=== PATIENT | male | born 1985 | race Caucasian/White ===

== ENCOUNTER → 2016-09-20 | Outpatient (CLI) | payer OTHER ==
--- NOTE | 2016-09-21 10:14 | KCIC ---
PROCEDURE MR of the left knee HISTORY Left knee pain. Swelling. Injury in 2008. Meniscal repair 2012. COMPARISON None TECHNIQUE Routine multiplanar sequences are obtained. FINDINGS Mild signal within the medial meniscus. Very small parameniscal cyst adjacent to the posterior horn. Very subtle violation of the undersurface. There is also some violation of the posterior capsular surface. Findings are suspicious for small tear. No evidence of a lateral meniscal tear. The anterior and posterior cruciate ligaments are intact. Medial collateral ligament intact. Iliotibial band unremarkable. Fibular collateral ligament, biceps femoris tendon and popliteus tendon are intact. The extensor mechanism is intact. Trace joint fluid. No evidence of osteochondral loose body. No acute articular cartilage defect. No bone lesion or acute fracture. Mild edema or contusion within the infrapatellar fat. There is a small low signal nodule just medial to the patellar tendon measures roughly 1 cm long axis. The low T1 and low T2 signal suggestive focal area of scarring or fibrous nodule. IMPRESSION 1. Suspect small medial meniscal tear. 2. Small low signal soft tissue nodule, medial to the patellar tendon. Nonspecific but considerations include scarring or fibrous nodule, such as fibromatosis or fibrous histiocytoma. This could also be a chronic granulomatous reaction to foreign body. Electronically signed by: Moises Gonzales MD (September 21, 2016 10:12:54)
== END | disposition home or self-care (01) ==
LOC: KCIC MRI 07:49
PROVIDERS: ATTEND Family Medicine Sports Medicine
DX: M25.562 Pain in left knee (principal)
CPT/HCPCS: 73721

== ENCOUNTER → 2016-10-19 | Outpatient (CLI) | payer OTHER ==
--- NOTE | 2016-10-19 09:35 | KCIC ---
MR of the right knee HISTORY: Right knee pain. Pain is lateral. Pain for several months. TECHNIQUE: Routine multiplanar sequences are obtained. FINDINGS: Mild signal within the medial meniscus without evidence of tear. No evidence of a lateral meniscal tear. Anterior and posterior cruciate ligaments are intact. Mild proximal medial collateral ligament scarring. Iliotibial band, fibular collateral ligament, biceps femoris tendon and popliteus tendon are intact. Extensor mechanism is intact. No significant joint effusion. No acute articular cartilage defect. No bone lesion or acute fracture. No significant Qureshi's cyst. IMPRESSION: No evidence of meniscal tear or internal derangement. Electronically signed by: Moises Goznales MD (10/19/2016 9:31 AM)
== END | disposition home or self-care (01) ==
LOC: KCIC MRI 07:46
PROVIDERS: ATTEND Family Medicine Sports Medicine
DX: M25.561 Pain in right knee (principal)
CPT/HCPCS: 73721

== ENCOUNTER → 2017-09-24 | Outpatient (CLI) | payer OTHER | END | disposition home or self-care (01) | LOC: KCIC MRI 09:21 | DX: S83.242A Other tear of medial meniscus, current injury, left knee, initial encounter (principal); X58.XXXA Exposure to other specified factors, initial encounter; Y93.89 Activity, other specified; Y92.89 Other specified places as the place of occurrence of the external cause; Y99.8 Other external cause status | CPT/HCPCS: 73721 ==